=== PATIENT | female | born 1985 | race Caucasian/White ===

== ENCOUNTER 2017-09-28 12:36 | Emergency (ER) ==
[2017-09-28 12:39] VITALS: BP 143/83; TEMP 100.4; BMI 26.6
[2017-09-28] MEDS ORDERED: LIDOCAINE HCL 1% SDV SUBCUT STA (12:41)
[2017-09-28] MEDS ORDERED: ZITHROMAX PO STA (12:41)
[2017-09-28] MEDS ORDERED: ROCEPHIN IM STA (12:41)
[2017-09-28] MEDS ORDERED: DECADRON 4 MG/ML SDV IM STA (12:42)
[2017-09-28 12:53] LABS: BASOPHILS # (AUTO) 0.1 K/uL (0-0.2); BASOPHILS % (AUTO) 0.6 % (0.0-3.0); EOSINOPHILS % (AUTO) 0.1 % (0.0-7.0); HEMATOCRIT 43.2 % (37.0-47.0); HEMOGLOBIN 14.6 g/dl (12.0-16.0); IMMATURE GRANULOCYTE % (AUTO) 0.7 % (0.0-5.0); LYMPHOCYTES # (AUTO) 0.9 K/uL (0.60-3.4); LYMPHOCYTES % (AUTO) 8.2 (10.0-50.0); MEAN CORPUSCULAR HEMOGLOBIN 29.4 pg (27.0-31.0); MEAN CORPUSCULAR HGB CONC 33.8 (31.8-35.4); MEAN CORPUSCULAR VOLUME 86.9 fl (81.0-99.0); MONOCYTES # (AUTO) 0.6 K/uL (0.4-2.0); NEUTROPHILS # (AUTO) 9.7 K/ul (2.0-6.9); NEUTROPHILS % (AUTO) 85.4; PLATELET COUNT 249 10^3/uL (140-440); RED BLOOD COUNT 4.97 10^6/ul (4.20-5.40)
[2017-09-28 13:10] LABS: ALBUMIN 3.7 g/dL (3.4-5.0); ALBUMIN/GLOBULIN RATIO 0.86; ANION GAP 13.5; BILIRUBIN,TOTAL 0.45 mg/dL (0.00-1.20); BUN/CREATININE RATIO 11.36; CREATININE 0.88 mg/dL (0.60-1.30); POTASSIUM 3.5 mmol/L (3.5-5.10); SERUM PREGNANCY INTERNAL QC INTERNAL QC VALID
--- NOTE | 2017-09-28 13:20 | ED.PDOC ---
General ED Provider: Dr. STEPHANI EDGAR Chief Complaint: Sore Throat Stated Complaint: SORE THROAT Time Seen by Physician: 12:45 ( STARTED X 3 DAYS ) Mode of Arrival: Walk-In Information Source: Patient Exam Limitations: No limitations Referred to ED by: Other (NO AIR WAY ISSUES ) Nursing and Triage Documentation Reviewed and Agree: Yes (NOT SHORT OF AIR ) EENT Complaint Exam - Throat Complaint/Exam Onset/Duration: 3 DAYS Symptoms Are: Still present Timimg: Intermittent Initial Severity: Mild Current Severity: Mild Aggravating: Reports: Eating Alleviating: Reports: None Associated Signs and Symptoms: Reports: Chills, Cough, Nasal congestion. Denies : Fever, Dysphagia, Drooling, Foreign body sensation, Wheezing, Hoarseness, Sinus discomfort, Difficulty breathing, Lethargy, Irritability, Decreased activity, Vomiting, Diarrhea, Decreased hearing, Ear drainage Related History: Reports: Similar Episode Uvula Midline: Yes Danisha-tonsillar Fluctuence: No Scarlatinaform Rash Present: No Stridor Present: No Sinus Tenderness Present: No Tonsillar Hypertrophy Present: No Tonsillar Exudate Present: No Danisha-tonsillar Swelling Present: No Adenopathy Present: No Splenomegaly Present: No Differential Diagnoses: Mononucleosis, Pharyngitis, URI Review of Systems - Review Of Systems Constitutional: Reports: Malaise Eyes: Reports: No symptoms Ears, Nose, Mouth, Throat: Reports: Throat pain Respiratory: Reports: Cough Cardiac: Reports: No symptoms GI: Reports: No symptoms : Reports: No symptoms Musculoskeletal: Reports: No symptoms Skin: Reports: No symptoms Neurological: Reports: No symptoms Endocrine: Reports: No symptoms Hematologic/Lymphatic: Reports: No symptoms All Other Systems: Reviewed and Negative Past Medical History - Past Medical History Previously Healthy: Yes Endocrine: Reports: None Cardiovascular: Reports: None Respiratory: Reports: None Hematological: Reports: None Gastrointestinal: Reports: None Genitourinary: Reports: None Neuro/Psych: Reports: None Musculoskeletal: Reports: None Cancer: Reports: None Last Menstrual Period: HYSTERECTOMY - Surgical History General Surgical History: Reports: None - Family History Family History: Reports: None - Social History Smoking Status: Never smoker Hx Substance Use: No Alcohol Screening: None - Immunizations Tetanus Shot up to Date: Yes Physical Exam - Physical Exam Appearance: Well-appearing, No pain distress, Well-nourished Eyes: ADENIKE, EOMI, Conjunctiva clear ENT: Ears normal, Nose normal, Oropharynx normal Respiratory: Airway patent, Breath sounds clear, Breath sounds equal, Respirations nonlabored Cardiovascular: RRR, Pulses normal, No rub, No murmur GI/: Soft, Nontender, No masses, Bowel sounds normal, No Organomegaly Musculoskeletal: Normal strength, ROM intact, No edema, No calf tenderness Skin: Warm, Dry, Normal color Neurological: Sensation intact, Motor intact, Reflexes intact, Cranial nerves intact, Alert, Oriented Psychiatric: Affect appropriate, Mood appropriate Interpretation - Radiology Interpretation Radiology Interpretation By: Radiologist Critical Care Note - Critical Care Note Total Time (mins): 0 Course - Course Hematology/Chemistry: 09/28/17 12:48 09/28/17 12:48 Orders, Labs, Meds: Lab Review 09/28/17 09/28/17 09/28/17 12:48 12:48 12:48 WBC 11.30 H RBC 4.97 Hgb 14.6 Hct 43.2 MCV 86.9 MCH 29.4 MCHC 33.8 RDW Coeff of Francy 12.1 Plt Count 249 Immature Gran % (Auto) 0.7 Neut % (Auto) 85.4 Lymph % (Auto) 8.2 L [place] % (Auto) 5.0 Eos % (Auto) 0.1 Baso % (Auto) 0.6 Immature Gran # (Auto) 0.1 Neut # 9.7 H Lymph # 0.9 [place] # 0.6 Eos # 0.0 Baso # 0.1 Sodium 138 Potassium 3.5 Chloride 100 Carbon Dioxide 28 Anion Gap 13.5 BUN 10 Creatinine 0.88 Estimated GFR (MDRD) 74.00 BUN/Creatinine Ratio 11.36 Glucose 113 H Calcium 10.0 Total Bilirubin 0.45 AST 19 ALT 22 Alkaline Phosphatase 108 H Total Protein 8.0 Albumin 3.7 Globulin 4.3 Albumin/Globulin Ratio 0.86 Serum , Qual Negative Orders Category Date Time Status CBC W/ AUTO DIFF Stat LAB 09/28/17 12:48 Completed COMPREHENSIVE METABOLIC PANEL Stat LAB 09/28/17 12:48 Completed FLU A & B RAPID TEST [RAPID FLU A/B] Stat LAB 09/28/17 13:00 Received SERUM Stat LAB 09/28/17 12:48 Completed STREP SCREEN Stat LAB 09/28/17 13:00 Completed Azithromycin [Zithromax] MEDS 09/28/17 12:41 Discontinued 1,000 mg PO ONCE STA Ceftriaxone Sodium [Rocephin] MEDS 09/28/17 12:41 Discontinued 1 gm IM ONCE STA Dexamethasone 4 mg/ml Inj [Decadron 4 mg/ml Sdv] MEDS 09/28/17 12:42 Discontinued 4 mg IM ONCE STA Lidocaine HCl/Pf [Lidocaine HCl 1% Sdv] MEDS 09/28/17 12:41 Discontinued 5 ml SUBCUT ONCE STA CHEST, 2 VIEWS PA & LAT Stat RADS 09/28/17 12:42 Taken Medications Discontinued Medications Generic Name Dose Route Start Last Admin Trade Name Sussy PRN Reason Stop Dose Admin Azithromycin 1,000 mg 09/28/17 12:41 09/28/17 12:57 Zithromax PO 09/28/17 12:42 1,000 mg ONCE STA Administration Ceftriaxone Sodium 1 gm 09/28/17 12:41 09/28/17 12:57 Rocephin IM 09/28/17 12:42 1 gm ONCE STA Administration Dexamethasone Sodium Phosphate 4 mg 09/28/17 12:42 09/28/17 12:57 Decadron 4 Mg/Ml Sdv IM 09/28/17 12:43 4 mg ONCE STA Administration Lidocaine HCl 5 ml 09/28/17 12:41 09/28/17 12:57 Lidocaine Hcl 1% Sdv SUBCUT 09/28/17 12:42 5 ml ONCE STA Administration Vital Signs: Temp Pulse Resp BP Pulse Ox 09/28/17 12:37 100.4 F H 113 H 20 143/83 H 97 Departure - Departure Time of Disposition: 13:20 Disposition: HOME SELF-CARE Discharge Problem: Sore throat symptom Pharyngitis Qualifiers: Pharyngitis/tonsillitis etiology: unspecified etiology Qualified Code(s): J02.9 - Acute pharyngitis, unspecified Instructions: Pharyngitis (ED), Strep Throat (ED) Condition: Good Pt referred to PMD for follow-up: Yes Additional Instructions: Please call your Family Physician as soon as possible to schedule a follow-up appointment. Allergies/Adverse Reactions: Allergies Penicillins Adverse Reaction (Verified 09/28/17 12:39) Home Medications: Ambulatory Orders 1 [No Reported Medications] 05/17/14 Disposition Discussed With: Patient
[2017-09-28 13:22] LABS: FLU INTERNAL QC INTERNAL QC VALID; RAPID FLU A NEGATIVE (NEGATIVE); RAPID FLU B NEGATIVE (NEGATIVE)
[2017-09-28 13:38] LABS: MONO INTERNAL QC INTERNAL QC VALID
--- NOTE | 2017-09-28 14:53 | DI ---
Exam: Three x-rays of the chest. Comparison: None available. Reason for exam: Cough. FINDINGS: No pneumothorax, pleural effusion, or focal consolidation. The cardiac silhouette is not enlarged. The imaged osseous structures appear grossly unremarkable without acute fracture. Impression: No acute cardiopulmonary process.
== END 2017-09-28 13:57 | disposition home or self-care (01) ==
LOC: ED 12:36
DX: J02.9 Acute pharyngitis, unspecified (principal)
CPT/HCPCS: 36415; 80053; 84703; 85025; 86308; 87804; 87880; 96372; 99283

== ENCOUNTER 2018-06-17 10:39 | Emergency (ER) ==
[2018-06-17 10:42] VITALS: BP 136/94; TEMP 97.9; BMI 25.0
--- NOTE | 2018-06-17 10:57 | ED.PDOC ---
General ED Provider: Dr. ROMEL DENISE Chief Complaint: Chest Pain Stated Complaint: Chest pain. States while working developed facial tingling followed by discomfort in lower lt anterior chest wall. Time Seen by Physician: 10:50 Mode of Arrival: Walk-In Information Source: Patient Nursing and Triage Documentation Reviewed and Agree: Yes Does patient meet sepsis criteria?: No System Inflammatory Response Syndrome: Not Applicable Sepsis Protocol: For patient's 13 years and over: Temp is 96.8 and below OR 101 and greater Pulse >90 BPM Resp >20/minute Acutely Altered Mental Status Are patient's symptoms suggestive of a new infection, such as: -Pneumonia -Skin, Soft Tissue -Endocarditis -UTI -Bone, Joint Infection -Implantable Device -Acute Abdominal Infection -Wound Infection -Meningitis -Blood Stream Catheter Infection -Unknown Cardiovascular Complaint Exam - Chest Pain Complaint/Exam Onset: Sudden Symptoms Are: Resolved Timing: Constant Length of Chest Pain Episodes: 5-10 min Initial Severity: Moderate Current Severity: None Location: Reports: Diffuse, Midsternal, Left anterior Pain Radiates: Reports: Left shoulder, Left arm Character: Reports: Aching, Tightness, Burning, Sharp Aggravating: Reports: None Alleviating: Reports: Spontaneous resolution Associated Signs and Symptoms: Denies: Diaphoresis, Nausea, Vomiting, Fever, Palpitations, Cough, Hemoptysis, Back pain, Abdominal pain, Dizziness, Short of air, Calf pain, Calf swelling Related History: Denies: Similar episode Related Surgical History: Reports: None History of Healthcare-Acquired Pneumonia: Reports: No AMI/ACS Risk Factors: Reports: None TAD Risk Factors: Reports: None Pulmonary Embolism Risk Factors: Reports: None Prior Care for this Complaint: No Recent Stress Test: No Recent Echo/LV Function: No JVD Present: No Subcutaneous Emphysema Present: No Diminshed Breath Sounds: No Reproducible Chest Wall Pain: Yes (Lt 34 rib) Bilateral Pulses Present: Yes Unequal Pulses Noted: No If Risk Factors for AMI/ACS Consider: EKG, Cardiac Enzymes Documents Reviewed: EMS records Care and Dx Studies Discussed With: Family Head Of Partner [employer] Consulted: Yes Differential Diagnoses: Other (angina/chest wall pain syndrome) Quality Indicators For Acute ID or Cardiac Chest Pain: EKG in 10min. Review of Systems - Review Of Systems Constitutional: Reports: No symptoms Eyes: Reports: No symptoms Ears, Nose, Mouth, Throat: Reports: No symptoms Respiratory: Reports: No symptoms Cardiac: Reports: No symptoms GI: Reports: No symptoms : Reports: No symptoms Musculoskeletal: Reports: No symptoms, Other (chest wall pain ) Skin: Reports: No symptoms Neurological: Reports: No symptoms Endocrine: Reports: No symptoms Hematologic/Lymphatic: Reports: No symptoms All Other Systems: Reviewed and Negative Past Medical History - Past Medical History Previously Healthy: Yes Endocrine: Reports: None Cardiovascular: Reports: None Respiratory: Reports: None Hematological: Reports: None Gastrointestinal: Reports: None Genitourinary: Reports: None Neuro/Psych: Reports: None Musculoskeletal: Reports: None Cancer: Reports: None Last Menstrual Period: None - Surgical History General Surgical History: Reports: None - Family History Family History: Reports: None - Social History Smoking Status: Never smoker Hx Substance Use: No Alcohol Screening: None - Immunizations Tetanus Shot up to Date: Yes Physical Exam - Physical Exam Appearance: Well-appearing, No pain distress, Well-nourished Eyes: ADENIKE, EOMI, Conjunctiva clear ENT: Ears normal, Nose normal, Oropharynx normal Respiratory: Airway patent, Breath sounds clear, Breath sounds equal, Respirations nonlabored Cardiovascular: RRR, Pulses normal, No rub, No murmur GI/: Soft, Nontender, No masses, Bowel sounds normal, No Organomegaly Musculoskeletal: Normal strength (Tenderness lt ant chest wall-pain as described reproduced to palpation ), ROM intact, No edema, No calf tenderness Skin: Warm, Dry, Normal color Neurological: Sensation intact, Motor intact, Reflexes intact, Cranial nerves intact, Alert, Oriented Psychiatric: Affect appropriate, Mood appropriate Critical Care Note - Critical Care Note Total Time (mins): 0 Course - Course Hematology/Chemistry: 06/17/18 11:30 06/17/18 11:30 Orders, Labs, Meds: Lab Review 06/17/18 06/17/18 06/17/18 11:00 11:30 11:30 WBC 8.79 RBC 4.60 Hgb 13.7 Hct 40.1 MCV 87.2 MCH 29.8 MCHC 34.2 RDW Coeff of Francy 12.1 Plt Count 274 Immature Gran % (Auto) 0.5 Neut % (Auto) 67.7 Lymph % (Auto) 21.8 Cole % (Auto) 5.5 Eos % (Auto) 3.6 Baso % (Auto) 0.9 Immature Gran # (Auto) 0.0 Neut # (Auto) 6.0 Lymph # (Auto) 1.9 Cole # (Auto) 0.5 Eos # (Auto) 0.3 Baso # (Auto) 0.1 Sodium 138 Potassium 3.9 Chloride 103 Carbon Dioxide 27 Anion Gap 11.9 BUN 12 Creatinine 0.72 Estimated GFR (MDRD) 93.00 BUN/Creatinine Ratio 16.66 Glucose 100 Calcium 9.5 Total Bilirubin 0.5 AST 14 L ALT 16 Alkaline Phosphatase 108 H Troponin I Total Protein 7.4 Albumin 3.8 Globulin 3.6 Albumin/Globulin Ratio 1.06 Triglycerides Cholesterol LDL Cholesterol, Calc VLDL Cholesterol HDL Cholesterol Cholesterol/HDL Ratio Urine Color Yellow Urine Clarity Clear Urine pH 7.0 Ur Specific Kermit 1.020 Urine Protein Negative Urine Glucose (UA) Negative Urine Ketones Negative Urine Blood Negative Urine Nitrite Negative Urine Bilirubin Negative Urine Urobilinogen 0.2 Ur Leukocyte Esterase Negative 06/17/18 06/17/18 11:30 11:30 WBC RBC Hgb Hct MCV MCH MCHC RDW Coeff of Francy Plt Count Immature Gran % (Auto) Neut % (Auto) Lymph % (Auto) Cole % (Auto) Eos % (Auto) Baso % (Auto) Immature Gran # (Auto) Neut # (Auto) Lymph # (Auto) Cole # (Auto) Eos # (Auto) Baso # (Auto) Sodium Potassium Chloride Carbon Dioxide Anion Gap BUN Creatinine Estimated GFR (MDRD) BUN/Creatinine Ratio Glucose Calcium Total Bilirubin AST ALT Alkaline Phosphatase Troponin I < 0.0100 Total Protein Albumin Globulin Albumin/Globulin Ratio Triglycerides 71 Cholesterol 162 LDL Cholesterol, Calc 99 VLDL Cholesterol 14 HDL Cholesterol 49 Cholesterol/HDL Ratio 3.3 L Urine Color Urine Clarity Urine pH Ur Specific [place] Urine Protein Urine Glucose (UA) Urine Ketones Urine Blood Urine Nitrite Urine Bilirubin Urine Urobilinogen Ur Leukocyte Esterase Orders Category Date Time Status EKG-(ED ONLY) Stat CARDIO 06/17/18 10:56 Completed NPO REMINDER: LAB TEST ONCE CARE 06/17/18 11:28 Completed CBC W/ AUTO DIFF Stat LAB 06/17/18 11:30 Completed CMP [COMPREHENSIVE METABOLIC PANEL] Stat LAB 06/17/18 11:30 Completed LIPID PANEL Stat LAB 06/17/18 11:30 Completed TROPONIN I Stat LAB 06/17/18 11:30 Completed UA [URINALYSIS C & S IF INDICATED] Stat LAB 06/17/18 11:00 Completed CHEST, 1V AP ONLY Stat RADS 06/17/18 10:56 Completed Vital Signs: Temp Pulse Resp BP Pulse Ox 06/17/18 10:39 97.9 F 95 H 14 136/94 H 99 MARY ELLEN Risk Score MARY ELLEN Risk Score: Risk Score Odds of by 30D 0 0.1 (0.1-0.2) 1 0.3 (0.2-0.3) 2 0.4 (0.3-0.5) 3 0.7 (0.6-0.9) 4 1.2 (1.0-1.5) 5 2.2 (1.9-2.6) 6 3.0 (2.5-3.6) 7 4.8 (3.8-6.1) Departure - Departure Time of Disposition: 13:50 Disposition: HOME SELF-CARE Discharge Problem: Atypical chest pain, Alkaline phosphatase elevation, Hx of gastroesophageal reflux (GERD) Discharge Problem: (Ruled Out): Alkaline phosphatase deficiency Instructions: Chest Pain (ED), Indigestion (ED) Condition: Good Pt referred to PMD for follow-up: Yes (Choose PCP) IPMP verified?: No Additional Instructions: Explained results all testing. Isolated lt anterior chest wall localized tenderness Noted isolated alkaline phosphatase elevation. when questioned, pt admits to occasional indigestion with certain foods and RUQ discomfort No knowledge of prior dx known GI illness Explained need to have further evaluation including Liver /Gall Bladder evaluation -ultrasound to have as out patient. Made suggestions on local physicians to select for PCP Allergies/Adverse Reactions: Allergies Penicillins Adverse Reaction (Verified 06/17/18 10:42) Home Medications: Ambulatory Orders 1 [No Reported Medications] 05/17/14 Disposition Discussed With: Patient, Family (Choose PCP follow up evaluation)
--- NOTE | 2018-06-17 11:15 | DI ---
EXAM: Single view of the chest. History: Chest pain. Comparison: Chest radiograph 09/28/2017 Findings: Heart size is within normal limits. No focal consolidation. No appreciable pleural fluid and no pneumothorax. No acute osseous abnormalities. Impression: No acute cardiopulmonary process.
== END 2018-06-17 13:14 | disposition home or self-care (01) ==
LOC: ED 10:39
DX: R07.89 Other chest pain (principal); R74.8 Abnormal levels of other serum enzymes; K30 Functional dyspepsia; K21.9 Gastro-esophageal reflux disease without esophagitis
CPT/HCPCS: 36415; 80053; 80061; 81001; 84484; 85025; 93005; 93010; 99283

== ENCOUNTER 2018-06-19 10:12 | Outpatient (CLI) ==
--- NOTE | 2018-06-19 11:20 | US ---
EXAM: Right upper quadrant abdominal ultrasound. History: Epigastric abdominal pain. Technique: Multiple sonographic images through the abdomen were obtained. Color duplex Doppler was used to interrogate vascular flow. Findings: The liver is not enlarged. The visualized pancreas demonstrates no gross abnormality. No abdominal ascites. No focal liver lesions identified sonographically. The liver is not echogenic compared to the adjacent right renal cortex. No shadowing gallstones. Gallbladder wall is not thickened. Commo n bile duct measures 0.4 cm in caliber. There is antegrade flow within the main portal vein. Limite d visualization of the right kidney demonstrates no evidence for hydronephrosis. Impression: Unremarkable exam.
== END 2018-06-19 10:13 | disposition home or self-care (01) ==
LOC: RAD 10:12
PROVIDERS: ATTEND Emergency Medicine
DX: R10.13 Epigastric pain (principal)

== ENCOUNTER 2018-07-25 07:41 | Emergency (ER) ==
[2018-07-25 07:49] VITALS: BP 108/77; TEMP 99.4; BMI 26.6
--- NOTE | 2018-07-25 08:06 | ED.PDOC ---
General ED Provider: Dr. ROMEL DENISE Chief Complaint: Sore Throat Stated Complaint: c/o cough, congestion, sore throat and left ear hurting. Onset this AM. Child present and sick as well. Time Seen by Physician: 08:10 Mode of Arrival: Walk-In Information Source: Patient Exam Limitations: No limitations Nursing and Triage Documentation Reviewed and Agree: Yes Does patient meet sepsis criteria?: No System Inflammatory Response Syndrome: Not Applicable Sepsis Protocol: For patient's 13 years and over: Temp is 96.8 and below OR 101 and greater Pulse >90 BPM Resp >20/minute Acutely Altered Mental Status Are patient's symptoms suggestive of a new infection, such as: -Pneumonia -Skin, Soft Tissue -Endocarditis -UTI -Bone, Joint Infection -Implantable Device -Acute Abdominal Infection -Wound Infection -Meningitis -Blood Stream Catheter Infection -Unknown EENT Complaint Exam - Ear Complaint/Exam Onset/Duration: Today Symptoms Are: Still present Timing: Constant Initial Severity: Moderate Current Severity: Moderate Character: Reports: Dull pain Aggravating: Reports: None Alleviating: Reports: None Associated Signs and Symptoms: Reports: Sore throat, URI symptoms Ear Surgical History: None Vesicles to External Pinna: No Vesicles to Tragus: No TMJ Tenderness: None Mastoid Tenderness: None Tragal Tenderness: None External Canal: Normal Tympanic Membrane: Erythema Ear: 1 - LT TM 2 - Lt ear Differential Diagnoses: URI, Serous Otitis - Throat Complaint/Exam Onset/Duration: today Symptoms Are: Still present Timimg: Constant Initial Severity: Moderate Current Severity: Moderate Aggravating: Reports: None Alleviating: Reports: None Associated Signs and Symptoms: Reports: Ear drainage (Lt Ear ache). Denies: Fever, Dysphagia, Drooling, Foreign body sensation, Chills, Cough, Wheezing, Hoarseness, Sinus discomfort, Nasal congestion, Difficulty breathing, Lethargy, Irritability, Decreased activity, Vomiting, Diarrhea, Decreased hearing Uvula Midline: Yes Danisha-tonsillar Fluctuence: No Scarlatinaform Rash Present: No Lesions: Absent: Lip, Gums, Tongue, Buccal Mucosa, Pharynx Exanthem: Absent: Lip, Gums, Tongue, Buccal Mucosa, Pharynx Vesicles: Absent: Lip, Gums, Tongue, Buccal Mucosa, Pharynx Stridor Present: No Sinus Tenderness Present: No Tonsillar Hypertrophy Present: Yes Tonsillar Exudate Present: No Danisha-tonsillar Swelling Present: Yes Adenopathy Present: Yes Splenomegaly Present: No Differential Diagnoses: Pharyngitis, Tonsillitis Review of Systems - Review Of Systems Constitutional: Reports: No symptoms Eyes: Reports: No symptoms Ears, Nose, Mouth, Throat: Reports: No symptoms, Ear pain, Throat pain Respiratory: Reports: No symptoms Cardiac: Reports: No symptoms GI: Reports: No symptoms : Reports: No symptoms Musculoskeletal: Reports: No symptoms Skin: Reports: No symptoms Neurological: Reports: No symptoms Endocrine: Reports: No symptoms Hematologic/Lymphatic: Reports: No symptoms All Other Systems: Reviewed and Negative Past Medical History - Past Medical History Previously Healthy: Yes Endocrine: Reports: None Cardiovascular: Reports: Hypertension Respiratory: Reports: None Hematological: Reports: None Gastrointestinal: Reports: None Genitourinary: Reports: None Neuro/Psych: Reports: None Musculoskeletal: Reports: None Cancer: Reports: None Last Menstrual Period: n/a - Surgical History General Surgical History: Reports: None - Family History Family History: Reports: None - Social History Smoking Status: Never smoker Hx Substance Use: No Alcohol Screening: None Physical Exam - Physical Exam Appearance: Well-appearing, No pain distress, Well-nourished Ill-appearing: None Pain Distress: None Eyes: ADENIKE, EOMI, Conjunctiva clear ENT: Ears normal, Nose normal, Oropharynx normal (Erythrema) Neck: Supple Respiratory: Airway patent, Breath sounds clear, Breath sounds equal, Respirations nonlabored Cardiovascular: RRR, Pulses normal, No rub, No murmur GI/: Soft, Nontender, No masses, Bowel sounds normal, No Organomegaly Musculoskeletal: Normal strength, ROM intact, No edema, No calf tenderness Skin: Warm, Dry, Normal color Neurological: Sensation intact, Motor intact, Reflexes intact, Cranial nerves intact, Alert, Oriented Psychiatric: Affect appropriate, Mood appropriate Re-Evaluation - Re-Evaluation Time of Re-Evaluation: 09:30 Status: Improved Vital Signs Stable: Yes Lungs: Clear Skin: Warm and Dry Neuro: Alert and Oriented X3 CV: RRR Critical Care Note - Critical Care Note Total Time (mins): 0 Course - Course Vital Signs: Temp Pulse Resp BP Pulse Ox 07/25/18 07:48 99.4 F 89 16 108/77 98 Departure - Departure Time of Disposition: 09:40 Disposition: HOME SELF-CARE Discharge Problem: URI (upper respiratory infection), Otitis Instructions: Upper Respiratory Infection (ED), Ear Infection (ED) Condition: Good Pt referred to PMD for follow-up: Yes IPMP verified?: No Additional Instructions: Tylenol or advil as needed for temperature elevation or pain Follow up as needed Prescriptions: Azithromycin [Zithromax] 250 mg PO DAILY #6 tablet Allergies/Adverse Reactions: Allergies Penicillins Adverse Reaction (Verified 07/25/18 07:49) Home Medications: Ambulatory Orders Azithromycin [Zithromax] 250 mg PO DAILY #6 tablet 07/25/18 Disposition Discussed With: Patient
[2018-07-25] MEDS ORDERED: TYLENOL PO STA (08:56)
== END 2018-07-25 10:00 | disposition home or self-care (01) ==
LOC: ED 07:41
DX: J06.9 Acute upper respiratory infection, unspecified (principal); H66.92 Otitis media, unspecified, left ear
CPT/HCPCS: 87502; 87651; 99283

== ENCOUNTER 2018-12-24 11:14 | Outpatient (CLI) ==
[2018-09-27 09:37] VITALS: BMI 26.8
== END 2018-12-24 11:15 | disposition home or self-care (01) ==
LOC: RHC-LAB 11:14
PROVIDERS: ATTEND Nurse Practitioner Family
DX: R53.83 Other fatigue (principal); I10 Essential (primary) hypertension
CPT/HCPCS: 36415; 80053; 80061; 82306; 82607; 84439; 84481